=== PATIENT | female | born 1995 | race American Indian/Alaskan Native ===

== ENCOUNTER 2020-12-19 02:00 | Emergency (ER) | payer SELFPAY | END 2020-12-19 02:23 | disposition home or self-care (01) | LOC: ED 02:00 | DX: Z00.8 Encounter for other general examination (principal); Z53.21 Procedure and treatment not carried out due to patient leaving prior to being seen by health care provider ==

== ENCOUNTER 2020-12-19 06:24 | Emergency (ER) | payer BC ==
[2020-12-19 08:07] VITALS: BP 137/87
--- NOTE | 2020-12-19 08:49 | Ultrasound Report ---
FIRSTTRIMESTER OBSTETRIC ULTRASOUND HISTORY: Vaginal bleeding COMPARISON: None. TECHNIQUE: Routine transabdominal OB ultrasound performed. FINDINGS: The uterus is anteverted and measures 9.1 x 4.7 x 6.1 cm. No evidence for uterine mass. The endometrium is homogeneous and measures 9 mm in thickness. No intrauterine is demonstra nilam. The right ovary measures 3.6 x 2.0 x 2.2 cm and contains a simple appearing 2 cm cyst. The left ovary is unremarkable and measures 3.1 x 1.2 x 2.0 cm. Images through the bladder are unremarkable. No pelvic fluid collection. IMPRESSION No intrauterine is visualized. The endometrium is unremarkable measuring 9 mm in thickness. 2 cm right ovarian cyst. Signer Name: Danny Eagle Jr, MD Signed: 12/19/2020 8:45 AM Workstation Name: [id number]
[2020-12-19 08:53] LABS: Bacteria,Urine 1+ /HPF (Negative); Bilirubin,Urine NEG (Negative); Blood,Urine LG (Negative); Color,Urine Red (Yellow); Mucus,Urine FEW /HPF; Urobilinogen,Urine < 2.0 mg/dL (<2.0)
[2020-12-19 08:58] LABS: Basophils % (Auto) 0.3 % (0.0-1.8); Eosinophils # (Auto) 0.1 K/mm3 (0.0-0.4); Eosinophils % (Auto) 0.6 % (0.0-4.3); Hematocrit 39.4 % (30.3-42.9); Hemoglobin 13.4 gm/dl (10.1-14.3); Lymphocytes # (Auto) 2.5 K/mm3 (1.2-5.4); Mean Corpuscular HGB Conc 34 % (30-34); Mean Corpuscular Volume 90 fl (79-97); Monocytes # (Auto) 0.9 K/mm3 (0.0-0.8); Monocytes % (Auto) 5.4 % (0.0-7.3); Platelet Count 290 K/mm3 (140-440); Red Blood Count 4.36 M/mm3 (3.65-5.03); Red Cell Distribution Width 15.4 % (13.2-15.2)
[2020-12-19 09:16] LABS: Alanine Aminotransferase 13 units/L (7-56); Albumin 4.5 g/dL (3.9-5); Blood Urea Nitrogen 9 mg/dL (7-17); Calcium 10.1 mg/dL (8.4-10.2); Hemolysis Index 8
[2020-12-19 09:17] LABS: BUN/Creatinine Ratio 15
== END 2020-12-19 08:30 | disposition left against medical advice (07) ==
LOC: ED 06:24
DX: O03.9 Complete or unspecified spontaneous abortion without complication (principal); Z53.21 Procedure and treatment not carried out due to patient leaving prior to being seen by health care provider
CPT/HCPCS: 36415; 76801; 80053; 81001; 84702; 85025; 86900; 86901; 87086

== ENCOUNTER 2020-12-31 06:28 | Emergency (ER) | payer SELFPAY ==
[2020-12-31 07:34] VITALS: BP 139/86
== END 2020-12-31 07:34 ==
LOC: ED 06:28
DX: R42 Dizziness and giddiness (principal); Z53.21 Procedure and treatment not carried out due to patient leaving prior to being seen by health care provider

== ENCOUNTER 2021-01-11 21:35 | Emergency (ER) | payer SELFPAY ==
[2021-01-11 21:59] VITALS: BP 138/77
--- NOTE | 2021-01-11 23:05 | Emergency Department Report ---
ED General Adult HPI - General Chief complaint: Sore Throat Stated complaint: EAR BLOCKAGE SOB Time Seen by Provider: 01/11/21 22:34 Source: patient Mode of arrival: Ambulatory Limitations: No Limitations - History of Present Illness Initial comments: 25-year-old female patient presents emergency department with complaints of intermittent sore throat, ear discomfort, nonproductive cough, and nasal congestion for 3 weeks. Patient was evaluated at a local urgent care facility and treated with Azithromycin and Amoxicillin for presumed pharyngitis. Her symptoms have not improved. She has not been taking any [id number] medications in addition to the antibiotics. She has 1 day left of antibiotics. She does not have a primary care provider. She has tested negative for COVID-19 twice since the onset of her symptoms. Denies fever, headache, neck pain, shortness of breath, wheezing, vomiting, painful extraocular movements. Denies all other complaints at this time. - Related Data Previous Rx's Medication Instructions Recorded Last Taken Type Cetirizine HCl 10 mg PO DAILY #10 tablet 01/11/21 Unknown Rx Fluticasone [Flonase] 1 spray NS QDAY #1 bottle 01/11/21 Unknown Rx Allergies Allergy/AdvReac Type Severity Reaction Status Date / Time No Known Allergies Allergy Unverified 12/19/20 07:54 ED Review of Systems ROS: Stated complaint: EAR BLOCKAGE SOB Other details as noted in HPI Other: GENERAL: Negative for fever. ENT: Positive for ear pain, sore throat, nasal congestion. CARDIOVASCULAR: Negative for chest pain. PULMONARY: Positive for cough. GASTROINTESTINAL: Negative for abdominal pain. MUSCULOSKELETAL: Negative for back pain. NEUROLOGICAL: Negative for headache. INTEGUMENTARY: Negative for rash. ED Past Medical Hx - Past Medical History Previous Medical History?: No - Surgical History Past Surgical History?: No - Social History Smoking Status: Former Smoker Substance Use Type: None - Medications Home Medications: Home Medications Medication Instructions Recorded Confirmed Last Taken Type Cetirizine HCl 10 mg PO DAILY #10 tablet 01/11/21 Unknown Rx Fluticasone [Flonase] 1 spray NS QDAY #1 bottle 01/11/21 Unknown Rx ED Physical Exam - General Limitations: No Limitations - Other Other exam information: General: Awake and alert. No acute distress. Head: Atraumatic, normocephalic. No sinus tenderness. Eyes: Extraocular movements intact and painless. No periorbital swelling or tenderness. Pupils are equal and round. Normal sclera and conjunctiva. ENT: Normal otoscopic exam. Oral mucosa is moist. Normal pharyngeal exam. Neck: Supple. No lymphadenopathy. Pulmonary: No respiratory distress. Clear to auscultation bilaterally. Cardiac: Regular rate and rhythm. Pulses are palpable and equal bilaterally. No lower extremity cyanosis or edema. Skin: Warm and dry. No rashes. Abdomen: Soft, non-tender, non-protuberant. No guarding, rigidity, or rebound. Bowel sounds are normal. No organomegaly or masses noted. Back: Normal alignment. No CVA tenderness. Extremities: Symmetrical. Full range of motion intact. Neurological: Alert and oriented, appropriately interactive, no focal deficits. Psych: Cooperative. Appropriate mood and affect. Speech is evenly metered. Thoughts are logically construed. ED Course Vital Signs 01/11/21 21:56 Temperature 98.6 F Pulse Rate 59 L Respiratory 18 Rate Blood Pressure 138/77 O2 Sat by Pulse 97 Oximetry ED Medical Decision Making - Medical Decision Making Differential diagnosis including but not limited to: pharyngitis, sinusitis, allergic rhinitis, periorbital/orbital cellulitis Patient presents to the emergency department with signs/symptoms suggestive of viral versus allergic rhinitis. Patient has already been on multiple antibio tics with no relief. No clinical indication for further diagnostic work-up on an emergent basis at this time. Symptoms have been present for 3 weeks. She is not taking anything for symptomatic treatment. Patient will be discharged home with intranasal steroids and antihistamines and referred to primary care provider for close outpatient follow-up. Patient expressed understanding and is agreeable to plan of care. Strict return precautions provided. Repeat exam is unremarkable and benign. History, exam, diagnostic testing, and current condition do not suggest worrisome pathology to warrant further testing, continued ED treatment, admission, or surgical evaluation at this point. Given the low probability of a significant medical illness, it would be more likely to result in harm than benefit to perform further testing at this stage. Discussed findings, presumptive diagnosis, need for follow-up and specific signs/symptoms that should prompt immediate return to the emergency department. Instructions were explained in detail to the patient in addition to giving written discharge information. Patient expressed understanding and was given the opportunity to ask questions, all of which were satisfactorily answered prior to discharge home. Critical care attestation.: If time is entered above; I have spent that time in minutes in the direct care of this critically ill patient, excluding procedure time. ED Disposition Clinical Impression: Rhinitis Qualifiers: Rhinitis type: unspecified Qualified Code(s): J31.0 - Chronic rhinitis Disposition: HOME / SELF CARE / HOMELESS Is pt being admited?: No Does the pt Need Aspirin: No Condition: Stable Instructions: Nonallergic Rhinitis Additional Instructions: Take Tylenol every 4 hours and Motrin 8 hours as needed for pain. Take Citirizine as directed. Use Flonase as directed. Rest. Drink plenty of fluids. Follow-up with primary care provider this week. Call Wednesday to schedule appointment. See referral information below. Return to the emergency department immediately for new or worsening symptoms. Prescriptions: Cetirizine HCl 10 mg PO DAILY #10 tablet Fluticasone [Flonase] 1 spray NS QDAY #1 bottle Referrals: BRI MORSE MD [Staff Physician] - 3-5 Days [facility] [Outside] - 3-5 Days [facility] [Outside] - 3-5 Days [facility] [Outside] - 3-5 Days [facility] [Provider Group] - 3-5 Days Time of Disposition: 23:09
== END 2021-01-12 08:54 | disposition home or self-care (01) ==
LOC: ED 21:35
DX: J31.0 Chronic rhinitis (principal); Z87.891 Personal history of nicotine dependence; Z79.899 Other long term (current) drug therapy
CPT/HCPCS: 99282

== ENCOUNTER 2021-01-24 23:48 | Emergency (ER) | payer BC, OTHER ==
[2021-01-25 00:52] VITALS: BP 150/97
--- NOTE | 2021-01-25 01:43 | Emergency Department Report ---
ED General Adult HPI - General Chief complaint: Sore Throat Stated complaint: SWOLLEN TONSIL,CHEST PAIN Time Seen by Provider: 01/25/21 01:14 Source: patient Mode of arrival: Ambulatory Limitations: No Limitations - History of Present Illness Initial comments: 25-year-old female presents emerged department complaining of a 2 to 3-week history of nonimproving sore throat which has been evaluated by the ENT x2 in the ER x3 with no improvement despite her taking numerous oral medications. She was advised to come get blood work done to check for chronic throat pain. Reports no fever, chills, sweats no hemoptysis hematemesis overall states her pain has not has not improved but is still present. -: Sudden Consistency: constant Improves with: none Worsens with: none Associated Symptoms: denies other symptoms - Related Data Previous Rx's Medication Instructions Recorded Last Taken Type Fluticasone [Flonase] 1 spray NS QDAY #1 bottle 01/11/21 Unknown Rx RX: Cetirizine HCl 10 mg PO DAILY #10 tablet 01/11/21 Unknown Rx dexAMETHasone [Decadron] 4 mg PO Q12H #60 tablet 01/25/21 Unknown Rx Allergies Allergy/AdvReac Type Severity Reaction Status Date / Time No Known Allergies Allergy Unverified 12/19/20 07:54 ED Review of Systems ROS: Stated complaint: SWOLLEN TONSIL,CHEST PAIN Other details as noted in HPI Comment: All other systems reviewed and negative ED Past Medical Hx - Past Medical History Previous Medical History?: No - Surgical History Past Surgical History?: No - Social History Smoking Status: Former Smoker Substance Use Type: None - Medications Home Medications: Home Medications Medication Instructions Recorded Confirmed Last Taken Type Fluticasone [Flonase] 1 spray NS QDAY #1 bottle 01/11/21 Unknown Rx RX: Cetirizine HCl 10 mg PO DAILY #10 tablet 01/11/21 Unknown Rx dexAMETHasone [Decadron] 4 mg PO Q12H #60 tablet 01/25/21 Unknown Rx ED Physical Exam - General Limitations: No Limitations General appearance: alert, in no apparent distress - Head Head exam: Present: atraumatic, normocephalic - Eye Eye exam: Present: normal appearance - ENT ENT exam: Present: mucous membranes moist, other (Mild erythema to the pharynx) - Neck Neck exam: Present: normal inspection - Respiratory Respiratory exam: Present: normal lung sounds bilaterally. Absent: respiratory distress - Cardiovascular Cardiovascular Exam: Present: regular rate, normal rhythm. Absent: systolic murmur, diastolic murmur, rubs, gallop - GI/Abdominal GI/Abdominal exam: Present: soft, normal bowel sounds - Extremities Exam Extremities exam: Present: normal inspection - Back Exam Back exam: Present: normal inspection - Neurological Exam Neurological exam: Present: alert, oriented X3 - Psychiatric Psychiatric exam: Present: normal affect, normal mood - Skin Skin exam: Present: warm, dry, intact, normal color. Absent: rash ED Course Vital Signs 01/25/21 00:49 Temperature 98.4 F Pulse Rate 79 Respiratory 18 Rate Blood Pressure 150/97 O2 Sat by Pulse 97 Oximetry Critical care attestation.: If time is entered above; I have spent that time in minutes in the direct care of this critically ill patient, excluding procedure time. ED Disposition Clinical Impression: Chronic pharyngitis, Nonspecific chest pain Disposition: HOME / SELF CARE / HOMELESS Is pt being admited?: No Does the pt Need Aspirin: No Condition: Stable Instructions: Pharyngitis, Nonspecific Chest Pain, Adult, Sore Throat, Angina Additional Instructions: You were evaluated emergency department today for chest pain. Your evaluation has shown no medicals conditions requiring emergent intervention at this time, however recommend that you follow-up with your primary care physician or your case fitter soon as possible for further testing as an outpatient. Please schedule an appointment for follow-up with your primary care physician as soon as possible. Return to emergency department if you expands worsening uncontrolled chest pain, shortness of breath, lightheadedness, feeling faint, nausea, vomiting or any other concerning symptoms. Prescriptions: dexAMETHasone [Decadron] 4 mg PO Q12H #60 tablet Referrals: STEPHANIE MEADE MD [Staff Physician] - 3-5 Days CHRISTINE SILVA MD [Referring] - 3-5 Days MASON MORRISON MD [Staff Physician] - 3-5 Days СЕРГЕЙ HAWKINS MD [Referring] - 3-5 Days LEYDI SALAZAR MD [Staff Physician] - 3-5 Days
--- NOTE | 2021-01-25 02:30 | XRay Report ---
XR chest routine 2V INDICATION / CLINICAL INFORMATION: chest pain. COMPARISON: None available. FINDINGS: SUPPORT DEVICES: None. HEART /PULMONARY VASCULATURE: No significant abnormality. LUNGS / PLEURA: No significant pulmonary or pleural abnormality. No pneumothorax. ADDITIONAL FINDINGS: No significant additional findings. IMPRESSION: 1. No acute findings. Signer Name: Orlin Williamson MD Signed: 01/25/2021 2:26 AM Workstation Name: [id number]
== END 2021-01-25 04:35 | disposition home or self-care (01) ==
LOC: ED 23:48
DX: J31.2 Chronic pharyngitis (principal); R07.9 Chest pain, unspecified; F17.200 Nicotine dependence, unspecified, uncomplicated
CPT/HCPCS: 71046; 99283